=== PATIENT | male | born 1965 | race Caucasian/White ===

== ENCOUNTER 2022-07-13 08:19 | Outpatient (CLI) | payer OTHER, SELFPAY ==
[2022-07-13 13:45] LABS: Albumin* 4.8 g/dL (3.3-5.0); Chloride* 102 mmol/L (96-114); Potassium* 4.1 mmol/L (3.6-5.1); Sodium* 138 mmol/L (135-149)
[2022-07-13 13:47] LABS: Carbon Dioxide* 23 mmol/L (20-32); Cholesterol* 217 mg/dL (90-199); Creatinine* 0.9 mg/dL (0.5-1.5); Estimated Glomerular Filt Rate 101 ml/min
[2022-07-13 13:48] LABS: Alanine Aminotransferase* 50 U/L (4-50); Alkaline Phosphatase* 69 U/L (40-150); Aspartate Amino Transferase* 29 U/L (12-35); Bilirubin Total* 0.9 mg/dL (0.1-1.5); Blood Urea Nitrogen* 21 mg/dL (7-30); Calcium* 9.5 mg/dL (8.4-10.6); Glucose* 144 mg/dL (60-115); Total Protein* 7.8 g/dL (6.0-8.3); Triglycerides* 103 mg/dL (40-149)
[2022-07-13 13:49] LABS: HDL Cholesterol* 54 mg/dL (>=40); LDL Cholesterol Calculated 142 mg/dL (<100)
== END 2022-07-13 08:20 | disposition home or self-care (01) ==
PROVIDERS: Visit Provider Family Medicine
DX: E78.5 Hyperlipidemia, unspecified (principal); I10 Essential (primary) hypertension; R73.03 Prediabetes; R51.9 Headache, unspecified
CPT/HCPCS: 80053; 80061; 84443; 87086

== ENCOUNTER 2022-10-19 08:30 | Outpatient (CLI) | payer OTHER, SELFPAY ==
[2022-10-19 14:35] LABS: Chloride* 101 mmol/L (96-114)
[2022-10-19 14:36] LABS: Potassium* 4.9 mmol/L (3.6-5.1); Sodium* 138 mmol/L (135-149)
[2022-10-19 14:38] LABS: Creatinine Urine 145.2 mg/dL
[2022-10-19 14:39] LABS: Blood Urea Nitrogen* 16 mg/dL (7-30); Carbon Dioxide* 30 mmol/L (20-32); Cholesterol* 203 mg/dL (90-199); Estimated Glomerular Filt Rate 89 ml/min; Glucose* 152 mg/dL (60-115); Triglycerides* 96 mg/dL (40-149)
[2022-10-19 14:40] LABS: Calcium* 9.9 mg/dL (8.4-10.6); HDL Cholesterol* 57 mg/dL (>=40); LDL Cholesterol Calculated 127 mg/dL (<100); Microalbumin Creatinine Ratio 0 mg/g (0-30); Microalbumin Urine 1 mg/dL
[2022-10-19 15:20] LABS: Vitamin B12* 542 pg/mL (243-894)
== END 2022-10-19 08:31 | disposition home or self-care (01) ==
PROVIDERS: Visit Provider Family Medicine
DX: E78.5 Hyperlipidemia, unspecified (principal); E11.9 Type 2 diabetes mellitus without complications; I10 Essential (primary) hypertension; R51.9 Headache, unspecified
CPT/HCPCS: 80048; 80061; 82043; 82570; 82607

== ENCOUNTER 2023-02-06 15:15 | Outpatient (CLI) | payer OTHER, SELFPAY ==
--- NOTE | 2023-02-06 15:30 | MR_ITS ---
[facility] [address] [facility] [address] Phone:?[phone] Fax:?[phone] Referring Physician Information: Luana Silvestre D.O. [address] [facility] [address] Phone:?[phone] Fax:?[phone] Patient:Kasi Bennett Devika.B:?1965 Sex:?Male Phone:?[phone] [facility] MRN:?[id number] Exam Date:?02/06/2023 ? EXAM: MRI of the RIGHT SHOULDER, without contrast CLINICAL: Right shoulder pain. COMPARISONS: None available. TECHNICAL: MRI sequences of the right shoulder: Axials: PD, PDFS Coronals: PD, T2FS Sagittals: PDFS, T2 SEDATION: None. CONTRAST: None. FINDINGS: Rotator cuff: Supraspinatus/Infraspinatus: Mild tendinosis of the distal supraspinatus and infraspinatus tendons without significant tendon tear. No significant fatty atrophy of the muscle bellies. Teres minor: No tendinosis, tear or atrophy. Subscapularis: Mild partial interstitial insertional tearing of the distal tendon on axial series 5.2 images 47 and sagittal series 10 image 9. Mild partial interstitial tearing involving the proximal tendon on sagittal series 10 images 17-21. No significant fatty atrophy of the muscle belly. Bursae: Subacromial-subdeltoid: No significant bursal fluid. Subcoracoid: No significant bursal fluid. Coracoacromial arch: Acromion morphology: Type II. No os acromiale. Acromiohumeral space: Within normal limits. Coracohumeral space: Within normal limits. Biceps tendon, long head: Intraarticular and extraarticular segments intact without rupture, tendinopathy or displacement. Glenohumeral joint: Physiologic volume of joint fluid. Articular cartilage: No significant chondral loss. Capsule: No convincing evidence of capsular thickening or injury. Labrum: No convincing discrete labral tear identified on this nonarthrogram exam. No perilabral cyst identified. Bones: No suspicious marrow signal alteration, fracture or dislocation. Acromioclavicular joint: Mild to moderate changes of arthrosis with associated reactive marrow edema about the AC joint. No AC joint widening. IMPRESSION: 1. Mild partial tearing of the subscapularis tendon with mild supraspinatus and infraspinatus tendinosis. 2. 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 3. No additional internal derangement identified. JCZ Electronically signed on 02/07/2023 7:53:00 AM by Moody Vanegas D.O.
== END 2023-02-06 15:16 | disposition home or self-care (01) ==
LOC: MRI 15:16
PROVIDERS: PCP Family Medicine; Visit Provider Family Medicine
DX: M25.511 Pain in right shoulder (principal); M75.101 Unspecified rotator cuff tear or rupture of right shoulder, not specified as traumatic; M19.011 Primary osteoarthritis, right shoulder
CPT/HCPCS: 73221

== ENCOUNTER 2023-02-14 07:26 | Outpatient (CLI) | payer OTHER, SELFPAY | END 2023-02-14 07:27 | disposition home or self-care (01) | LOC: NFLDREF 19:24 | PROVIDERS: PCP Family Medicine; Visit Provider Family Medicine | DX: E11.65 Type 2 diabetes mellitus with hyperglycemia (principal); I10 Essential (primary) hypertension; E78.5 Hyperlipidemia, unspecified | CPT/HCPCS: 80053 ==

== ENCOUNTER 2023-06-28 08:45 | Outpatient (CLI) | payer OTHER, SELFPAY | END 2023-06-28 08:46 | disposition home or self-care (01) | PROVIDERS: PCP Family Medicine; Visit Provider Family Medicine | DX: I10 Essential (primary) hypertension (principal); E78.5 Hyperlipidemia, unspecified | CPT/HCPCS: 80053; 80061 ==

== ENCOUNTER 2024-03-21 07:29 | Outpatient (CLI) | payer OTHER, SELFPAY | END 2024-03-21 07:30 | disposition home or self-care (01) | LOC: NFLDREF 03-24 07:38 | PROVIDERS: PCP Physician Assistant Medical; Referring Provider Physician Assistant Medical; Visit Provider Physician Assistant Medical | DX: B00.9 Herpesviral infection, unspecified (principal); E11.9 Type 2 diabetes mellitus without complications; E78.5 Hyperlipidemia, unspecified; I10 Essential (primary) hypertension; Z12.5 Encounter for screening for malignant neoplasm of prostate | CPT/HCPCS: 80053; 80061; 82043; 82570; 84443; G0103 ==

== ENCOUNTER 2025-04-29 08:23 | Outpatient (CLI) | payer OTHER, SELFPAY | END 2025-04-29 08:24 | disposition home or self-care (01) | PROVIDERS: PCP Physician Assistant Medical; Referring Provider Physician Assistant Medical; Visit Provider Physician Assistant Medical | DX: E11.65 Type 2 diabetes mellitus with hyperglycemia (principal); I10 Essential (primary) hypertension; E78.2 Mixed hyperlipidemia; E78.5 Hyperlipidemia, unspecified; G43.909 Migraine, unspecified, not intractable, without status migrainosus; Z12.5 Encounter for screening for malignant neoplasm of prostate | CPT/HCPCS: 80053; 80061; 82043; 82570; 84443; G0103 ==

== ENCOUNTER 2025-07-25 15:02 | Outpatient (CLI) | payer OTHER, SELFPAY ==
--- NOTE | 2025-07-25 15:30 | CRLHL7_ITS ---
For Patients: As a result of the Century Cures Act, medical imaging exams and procedure reports are released immediately into your electronic medical record. You may view this report before your referring provider. If you have questions, please contact your health care provider. INDICATION: Migraines. TECHNIQUE: Brain MRI without contrast. COMPARISON: None. FINDINGS: No evidence of acute ischemia. No evidence of acute or chronic intracranial blood products. A few small FLAIR hyperintensities within the supratentorial white matter. Nonspecific. No mass effect or herniation. No hydrocephalus or extra-axial collections. The pituitary gland, parasellar structures and optic chiasm are normal. Posterior fossa is normal. All the major intracranial vascular structures demonstrate normal flow-related signal. The orbital contents are normal. No calvarial or skull base marrow replacing process. No obstructive sinus disease. No extracranial soft tissue findings. IMPRESSION: 1. No acute infarction or other acute intracranial pathology. 2. Few nonspecific white matter FLAIR hyperintensities. Consider small-vessel ischemic change or sequela of migraine headaches. Dictated by Siddharth Self MD @ 07/25/2025 5:01:09 PM (Electronically Signed)
== END 2025-07-25 15:03 | disposition home or self-care (01) ==
LOC: MRI 15:03
PROVIDERS: PCP Physician Assistant Medical; Visit Provider Physician Assistant Medical
DX: R51.9 Headache, unspecified (principal); I67.82 Cerebral ischemia; G89.29 Other chronic pain
CPT/HCPCS: 70551